=== PATIENT | male | born 1940 | race Caucasian/White ===

== ENCOUNTER 2017-03-11 03:04 | Emergency (ER) | payer MEDICAID, OTHER ==
[~2017-03-11] VITALS: Ht 167.6 cm; Wt 75.1 kg
[~2017-03-11 03:04] MED LIST: AMIO200T46 PO; ASPI81TA3 PO; ATOR20TA38 PO; COU2 PO; CYAN500T46 PO; LISI40TA9 PO; METF500T4 PO; METO-429 PO
[2017-03-11 03:16] VITALS: BP 114/57; PULSE 90; RESP 16; TEMP 98.3
[2017-03-11 03:18] VITALS: Ht 167.6 cm; Wt 75.1 kg
[2017-03-11] MEDS ORDERED: IBUP400T22 PO (04:28)
[2017-03-11] MEDS ORDERED: CYCL-319 PO (04:28)
[2017-03-11] MEDS ORDERED: HYDR-906 PO (04:28)
[2017-03-11] MEDS ORDERED: CYCLOBENZAPRINE 10 MG TAB PO ONE (04:30)
[2017-03-11] MEDS ORDERED: HYDROCODONE/APAP (5/325) TAB PO ONE (04:30)
--- NOTE | 2017-03-11 04:43 | ERD ---
ER Documentation Chief Complaint Chief Complaint Back & Neck Pain HPI 76-year-old male presents here in emergency department for complaints of left- sided neck pain radiating to the left upper back. This started 3 days ago. Patient was unable to do full range of motion because of pain and stiffness. Patient describes the pain as sharp pain, 6/10 scale, not better or worse with anything. Patient denies any direct trauma in affected area. Patient is any fever or chills. Patient denies any numbness or tingling. ROS All systems reviewed and are negative except as per history of present illness. Medications Home Meds Active Scripts Cyclobenzaprine Hcl* (Cyclobenzaprine Hcl*) 10 Mg Tablet, 10 MG PO TID, #15 TAB Prov:KEVIN BRUNNER NP 03/11/17 Hydrocodone/Acetaminophen (Acosta 5-325 Tablet) 1 Each Tablet, 1 TAB PO Q6H Y for SEVERE PAIN LEVEL 7-10, #20 TAB Prov:KEVIN BRUNNER NP 03/11/17 Ibuprofen* (Motrin*) 400 Mg Tab, 400 MG PO Q6H Y for PAIN AND OR ELEVATED TEMP, #30 TAB Prov:KEVIN BRUNNER NP 03/11/17 Metformin Hcl* (Metformin Hcl*) 500 Mg Tablet, 500 MG PO WITH BREAKFAST DINNE, # 60 TAB Prov:MICAH MALONEY 10/03/14 Cyanocobalamin* (Vitamin B12*) 500 Mcg Tab, 1000 MCG PO DAILY, #30 TAB Prov:ZACH NICOLE MD 10/03/14 Warfarin Sod (Coumadin) 2 Mg Tab, 2 MG PO DAILY@17 for 30 Days Prov:MICAH MALONEY 10/03/14 Metoprolol Tartrate* (Lopressor*) 50 Mg Tab, 50 MG PO BID for 60 Days, TAB Prov:MICAH MALONEY 10/03/14 Atorvastatin Calcium* (Atorvastatin Calcium*) 20 Mg Tab, 40 MG PO HS, #60 Prov:MICAH MALONEY 10/03/14 Amiodarone Hcl* (Cordarone*) 200 Mg Tab, 200 MG PO DAILY, #30 TAB Prov:MICAH MALONEY 10/03/14 Aspirin (Aspirin) 81 Mg Chew, 81 MG PO DAILY, #60 Prov:MICAH MALONEY 10/03/14 Lisinopril* (Lisinopril*) 40 Mg Tablet, 40 MG PO DAILY, #60 TAB Prov:MICAH MALONEY 10/03/14 Allergies Allergies: Coded Allergies: No Known Allergy (Unverified , 10/02/14) PMhx/Soc History of Surgery: Yes (L cataract repair, cholecystectomy ) Anesthesia Reaction: No Hx Neurological Disorder: No Hx Respiratory Disorders: No 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 CHEST: Clear to auscultation bilaterally. There are no rales, wheezes or rhonchi. HEART: Regular rate and rhythm. No murmurs, clicks, rubs or gallops. No S3 or S4. ABDOMEN: Soft, nontender and nondistended. Good bowel sounds. No rebound or guarding. No gross peritonitis. No gross organomegaly or masses. No Graves sign or McBurney point tenderness. BACK: No midline or flank tenderness. EXTREMITIES: Equal pulses bilaterally. There is no peripheral clubbing, cyanosis or edema. No focal swelling or erythema. Full range of motion. Grossly neurovascularly intact. NEURO: Alert and oriented. Cranial nerves 2-12 intact. Motor strength in all 4 extremities with 5/5 strength. Sensation grossly intact. Normal speech and gait. SKIN: There is no apparent rash or petechia. The skin is warm and dry. HEMATOLOGIC AND LYMPHATIC: There is no evidence of excessive bruising or lymphedema. No gross cervical, axillary, or inguinal lymphadenopathy. Results 24 hrs Current Medications Medications (Trade) Dose Ordered Sig/Teddy Route PRN Reason Start Time Stop Time Status Last Admin Dose Admin Acetaminophen/ Hydrocodone Bitart (Acosta (5/325)) 1 tab ONCE ONCE PO 03/11/17 04:30 12/13/17 04:31 DC 03/11/17 04:27 Cyclobenzaprine HCl (Flexeril) 10 mg ONCE ONCE PO 03/11/17 04:30 03/11/17 04:31 DC 03/11/17 04:27 Patient was given medication for pain here in emergency department, after treatment, patient verbalized feeling much better. Patient's pain is improved. Flexeril was given here in the emergency department for treatment. Procedures/MDM Medical Decision Making: Patient's pain is most likely consistent with a neck strain . There is no suspicion for neurovascular compromise. Patient has intact sensation and circulation of the affected extremity and distal extremities. No symptoms of any acute bacterial infection. Low suspicion for any fractures. No trauma in affected area. No suspicion for meningitis. T.There is low suspicion for septic arthritis. Patient does not have any fever. No symptoms of any aortic dissection or aortic aneurysm. Radiology exam not indicated at this time. Disposition: Home. Patient is given prescription for ibuprofen for mild to moderate pain, Acosta for severe pain, Flexeril for muscle spasm. Patient was advised to avoid heavy lifting , apply warm compresses on affected area. Patient was advised that if symptoms are worse, numbness, tingling, high fever, unable to move joint, worsening symptoms, to return to emergency department immediately. Otherwise, patient is advised to follow up with the primary care doctor in 5-7 days for reevaluation of symptoms. Disclaimer: Inadvertent spelling and grammatical errors are likely due to EHR/ dictation software use and do not reflect on the overall quality of patient care. Also, please note that the electronic time recorded on this note does not necessarily reflect the actual time of the patient encounter. Departure Diagnosis: Primary Impression: Neck strain Encounter type: initial encounter Qualified Code: S16.1XXA - Strain of neck muscle, initial encounter Condition: Stable Patient Instructions: Neck Sprain/Strain KEVIN BRUNNER NP Mar 11, 2017 04:43
== END 2017-03-11 04:56 | disposition home or self-care (01) ==
LOC: FTE 03:04
DX: S16.1XXA Strain of muscle, fascia and tendon at neck level, initial encounter (principal); E11.9 Type 2 diabetes mellitus without complications; I10 Essential (primary) hypertension; X58.XXXA Exposure to other specified factors, initial encounter; Y92.9 Unspecified place or not applicable; Z87.891 Personal history of nicotine dependence; Z79.82 Long term (current) use of aspirin; Z79.84 Long term (current) use of oral hypoglycemic drugs; Z79.01 Long term (current) use of anticoagulants
CPT/HCPCS: Z7502; Z7610; 99284